=== PATIENT | female | born 1985 | race Caucasian/White ===

== ENCOUNTER 2024-05-04 08:58 | Emergency (ER) | payer OTHER, SELFPAY ==
[2024-05-04 09:19] VITALS: BP 117/78; PULSE 81; RESP 20; O2SAT 99; BMI 26.6
[2024-05-04 09:20] VITALS: BP 117/78; PULSE 83; O2SAT 94
[2024-05-04 09:30] VITALS: BP 108/72; PULSE 82; O2SAT 99
--- NOTE | 2024-05-04 09:32 | DI.US.S_ITS ---
PROCEDURE: US OB <= 14 WEEKS FETUS INDICATIONS: bleeding OUTSIDE/PRIOR DATING DATA: Last menstrual period (LMP): March 03, 2024. LMP-based estimated date of delivery (TASHI): December 08, 2024. First dating scan (date and location): May 04, 2024. Estimated date of delivery (TASHI) from first dating scan: December 28, 2024. The calculations are made using the ultrasound TASHI of December 28, 2024. TECHNIQUE: Real-time scanning was performed of the fetus and maternal pelvic organs, with image documentation. Endovaginal scanning was also performed to better visualize the fetus and maternal ovaries. COMPARISON: None. FINDINGS: Embryo: Anechoic focus in the endometrial cavity may represent early gestational sac. Mean diameter of the possible gestational sac 1.2 centimeters corresponding to estimated age of 6 weeks 0 days. No pole, yolk sac or cardiac activity identified. Maternal organs: Ovaries are within normal limits. IMPRESSION: Possible intrauterine gestational sac without yolk sac or pole. Findings could represent early , nonviable or occult ectopic . Recommend correlation with serial beta HCG and short-term follow-up obstetrical ultrasound in 1-2 weeks. Dictated by: Lynda Novoa MD, PhD on 05/04/2024 at 11:06 Approved by: Lynda Novoa MD, PhD on 05/04/2024 at 11:09
--- NOTE | 2024-05-04 09:54 | PC.NURSE ---
5 miscarriages before 5 weeks gestation
[2024-05-04 09:57] LABS: Add Manual Diff / Slide Review NO; Basophils Absolute Auto 0 /uL (0-100); Basophils Percent Auto 0.5 % (0-2); Eosinophils Absolute Auto 0 /uL (0-450); Eosinophils Percent Auto 0.2 % (2-4); Hematocrit 43.3 % (36-46); Hemoglobin 14.6 g/dL (12.0-16.0); Lymphocytes Absolute Auto 1100 /uL (1100-4500); Lymphocytes Percent Auto 13.9 % (25-40); Mean Corpuscular HGB Conc 33.7 % (30-36); Mean Corpuscular Hemoglobin 30.1 PG (26-34); Mean Corpuscular Volume 89.3 fL (80-100); Monocytes Absolute Auto 600 /uL (0-900); Neutrophils Absolute Auto 6100 /uL (1500-7000); Neutrophils Percent Auto 77.4 % (50-75); Platelet Count 190 X10^3/uL (150-400); Red Blood Cell Count 4.85 X10^6/uL (4.0-5.2); Red Cell Distribution Width 13.5 % (11.6-14.8); White Blood Cell Count 7.9 X10^3/uL (4.5-11.0)
[2024-05-04 10:00] VITALS: BP 115/76; PULSE 83; O2SAT 99
[2024-05-04 10:09] LABS: Alanine Aminotransferase 32 IU/L (<35); Albumin 4.4 g/dL (3.5-5.0); Albumin Globulin Ratio 1.5 (1.0-2.8); Alkaline Phosphatase 80 U/L (38-126); Aspartate Aminotransferase 29 IU/L (14-36); BUN Creatinine Ratio 16.7 (6-22); Bilirubin Total 0.5 mg/dL (0.2-1.3); Blood Urea Nitrogen 11 mg/dL (7-17); Calcium 9.6 mg/dL (8.4-10.2); Carbon Dioxide 26 mmol/L (22-32); Chloride 105 mmol/L (98-107); Estimated Glomerular Filt Rate > 60 mL/min (>60); Glucose 107 mg/dL (70-100); HEMOLYSIS < 15 (0-50); Potassium 3.5 mmol/L (3.4-5.1); Sodium 136 mmol/L (137-145); Total Protein 7.4 g/dL (6.3-8.2)
--- NOTE | 2024-05-04 10:17 | ED.PREGNANCY ---
HPI - General Chief complaint: OB/Uterine Contractions Stated complaint: 9 weeks , per patient spotting , clotting Time Seen by Provider: 05/04/24 09:32 Source: patient Mode of arrival: Family Vehicle Limitations: no limitations History of Present Illness HPI Narrative: Patient 39-year-old female (traumatic 2nd C/S->SABx5 prior to 6 wk) currently about 9 weeks presenting today with vaginal bleeding. Reports that she started having some cramping last night having increased blood and bleeding this morning. But she does say it is only when she wipes. She is having increased cramping. 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 Related Data Home Medications Medication Instructions Recorded Confirmed coenzyme Q10 200 mg/gram oral mg PO 04/26/24 04/26/24 powder (H2Q CoQ10) ferrous sulfate 325 mg (65 mg 975 mg PO DAILY 04/26/24 04/26/24 iron) tablet (Feosol) magnesium glycinate 240 mg PO .hs 04/26/24 04/26/24 mecobalamin (vitamin B12) 500 mcg mcg PO DAILY 04/26/24 04/26/24 chewable tablet vitamin-ferrous sulfate tab PO 04/26/24 04/26/24 27 mg iron-folic acid 0.8 mg tablet vitamin C 45 mg-zinc citrate 4 tab PO 04/26/24 04/26/24 mg-elderberry 50 mg chewable tablet vitamin D3 125 mcg (5,000 2 cap PO DAILY 04/26/24 04/26/24 unit)-vitamin K2 90 mcg capsule Allergies Allergy/AdvReac Type Severity Reaction Status Date / Time Milk Containing Products AdvReac Mild Abdominal Verified 04/26/24 14:09 (Dairy) Pain soy AdvReac Mild Abdominal Verified 04/26/24 14:09 Pain wheat AdvReac Mild Abdominal Verified 04/26/24 14:09 Pain Exam Initial Vital Signs Initial Vital Signs: Vital Signs Pulse Rate 81 05/04/24 09:19 Respiratory Rate 20 05/04/24 09:19 Blood Pressure 117/78 05/04/24 09:19 Pulse Oximetry 99 05/04/24 09:19 Oxygen Delivery Method Room Air 05/04/24 09:19 GENERAL: Tearful 40 and in no acute distress. HEENT: Head atraumatic,EOMI, pupils reactive, face symmetric, moist mucous membranes CARDIOVASCULAR: Regular rate and rhythm without murmurs, rubs or gallops. RESPIRATORY: Breath sounds equal bilaterally, no wheezes rales or rhonchi. ABDOMEN: Soft, nontender. Normoactive bowel sounds all 4 quadrants. No guarding or rebound. PELVIC: External genitalia is normal, vaginal bleeding but easily cleaned with 3 large Q-tips, no vaginal discharge, no odor, cervical os is open, no tissue EXTREMITIES: Normal range of motion, no clubbing or edema. Neurovascularly intact NEUROLOGICAL: Alert and oriented x4.Normal gait and speech. SKIN: Warm, dry, no laceration, no petechiae, no rashes or lesions. Course Orders Ordered: ED Orders 05/04/24 09:32 US OB <= 14 weeks fetus Stat 05/04/24 09:45 Complete Blood Count AUTO DIFF Stat Comprehensive Metabolic Panel Stat HCG Quantitative /Beta subunit Stat Type and Screen Stat Discontinued Medications Acetaminophen (Acetaminophen 325 Mg Tablet) 975 mg PO NOW ONE Stop: 05/04/24 11:33 Last Admin: 05/04/24 11:38 Dose: 975 mg Documented By: YVAN Vital Signs Vital signs: Vital Signs - 8 hr 05/04/24 09:19 05/04/24 09:20 05/04/24 09:20 Pulse Rate 81 83 Respiratory Rate 20 Blood Pressure 117/78 117/78 Pulse Oximetry 99 94 Oxygen Delivery Method Room Air 05/04/24 09:30 05/04/24 09:30 05/04/24 10:00 Pulse Rate 82 83 Respiratory Rate Blood Pressure 108/72 Pulse Oximetry 99 99 Oxygen Delivery Method 05/04/24 10:00 05/04/24 11:41 05/04/24 11:42 Pulse Rate Respiratory Rate Blood Pressure 115/76 103/68 Pulse Oximetry 96 Oxygen Delivery Method 05/04/24 11:42 Pulse Rate Respiratory Rate Blood Pressure Pulse Oximetry 98 Oxygen Delivery Method MDM - OB/Uterine Contractions Lab Data 05/04/24 09:45 05/04/24 09:45 Labs: Lab Results 05/04/24 Range/Units 09:45 WBC 7.9 (4.5-11.0) X10^3/uL RBC 4.85 (4.0-5.2) X10^6/uL Hgb 14.6 (12.0-16.0) g/dL Hct 43.3 (36-46) % MCV 89.3 (80-100) fL MCH 30.1 (26-34) PG MCHC 33.7 (30-36) % RDW 13.5 (11.6-14.8) % Plt Count 190 (150-400) X10^3/uL Neut % (Auto) 77.4 H (50-75) % Lymph % (Auto) 13.9 L (25-40) % [place] % (Auto) 8.0 (3-14) % Eos % (Auto) 0.2 L (2-4) % Baso % (Auto) 0.5 (0-2) % Neut # (Auto) 6100 (4438-3360) /uL Lymph # (Auto) 1100 (0616-5303) /uL [place] # (Auto) 600 (0-900) /uL Eos # (Auto) 0 (0-450) /uL Baso # (Auto) 0 (0-100) /uL Sodium 136 L (137-145) mmol/L Potassium 3.5 (3.4-5.1) mmol/L Chloride 105 (98-107) mmol/L Carbon Dioxide 26 (22-32) mmol/L BUN 11 (7-17) mg/dL Creatinine 0.66 (0.52-1.04) mg/dL Estimated GFR > 60 (>60) mL/min BUN/Creatinine Ratio 16.7 (6-22) Glucose 107 H (70-100) mg/dL Calcium 9.6 (8.4-10.2) mg/dL Total Bilirubin 0.5 (0.2-1.3) mg/dL AST 29 (14-36) IU/L ALT 32 (<35) IU/L Alkaline Phosphatase 80 (38-126) U/L Total Protein 7.4 (6.3-8.2) g/dL Albumin 4.4 (3.5-5.0) g/dL Globulin 3.0 (1.7-4.1) g/dL Albumin/Globulin Ratio 1.5 (1.0-2.8) HCG, Quant 39903 mIU/mL Blood Type O Positive Antibody Screen Negative Point of Care Testing Test Results Positive Urine Dip Bedside Urine Glucose Negative Bedside Urine Bilirubin - Negative Bedside Urine Ketone - Negative Urine Specific [place] 1.020 Bedside Urine Occult Blood +++ Bedside Urine pH 6.0 Bedside Urine Protein - Negative Bedside Urine Urobilinogen - Negative Bedside Urine Nitrite - Negative Bedside Urine Leukocytes - Negative Esterase Imaging Data US - OB: Radiologist's Impression: PROCEDURE: US OB <= 14 WEEKS FETUS INDICATIONS: bleeding OUTSIDE/PRIOR DATING DATA: Last menstrual period (LMP): March 03, 2024. LMP-based estimated date of delivery (TASHI): December 08, 2024. First dating scan (date and location): May 04, 2024. Estimated date of delivery (TASHI) from first dating scan: December 28, 2024. The calculations are made using the ultrasound TASHI of December 28, 2024. TECHNIQUE: Real-time scanning was performed of the fetus and maternal pelvic organs, with image documentation. Endovaginal scanning was also performed to better visualize the fetus and maternal ovaries. COMPARISON: None. FINDINGS: Embryo: Anechoic focus in the endometrial cavity may represent early gestational sac. Mean diameter of the possible gestational sac 1.2 centimeters corresponding to estimated age of 6 weeks 0 days. No pole, yolk sac or cardiac activity identified. Maternal organs: Ovaries are within normal limits. IMPRESSION: Possible intrauterine gestational sac without yolk sac or pole. Findings could represent early , nonviable or occult ectopic . Recommend correlation with serial beta HCG and short-term follow-up obstetrical ultrasound in 1-2 weeks. 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 Pertinent findings: HCG 63879 Blood type O positive WBC 7.9 hemoglobin 14.6 hematocrit 43.3 platelets 190 Sodium 136 potassium 3 point chloride 105 carbon dioxide 26 BUN 11 creatinine 0.68 glucose 107 Imaging studies independently reviewed: Ultrasound shows 6 weeks no cardiac activity no pole Consultations: Dr. Dowd, ok to follow up on friday with Dr. Carter, no need for repeat HCG Re-evaluations: Patient not having any significant bleeding while in the emergency department shoulders having some while she Discussion: 39-year-old female multiple spontaneous miscarriages presenting today of vaginal bleeding. Certainly concern for miscarriage today. Ultrasound shows 6 weeks last menstrual period dating should be 9 weeks. No cardiac activity no pole. HCG 11,232. Discharge Plan Departure Patient Disposition: Home Clinical Impression: Spontaneous miscarriage Instructions: DI for Miscarriage Activity Restrictions/Additional Instructions: HCG 46372 At this time okay to just follow up with Dr. Carter on Friday as scheduled If you should have increased bleeding going through more than 2 pads in 1 hour increased abdominal pain dizziness lightheadedness or other symptoms please return to the emergency department Prescriptions: No Action vit-ferrous sulfat-FA 27 mg iron- 0.8 mg tablet PO vitamin D3-vitamin K2 125-90 mcg capsule 2 cap PO DAILY ferrous sulfate [Feosol] 325 mg (65 mg iron) tablet 975 mg PO DAILY mecobalamin (vitamin B12) 500 mcg tablet,chewable PO DAILY magnesium glycinate 118 mg magnesium capsule 240 mg PO .hs vit C-zinc citrate-elderberry 45-4-50 mg tablet,chewable PO H2Q CoQ10 200 mg/gram powder PO Referrals: Provider,Toni JIMENEZ [Primary Care Provider] - Pauline Carter MD [Physician] - Stand Alone Forms: Patient Portal/API/Survey
[2024-05-04 10:26] LABS: HCG Quantitative /Beta subunit 11232 mIU/mL
[2024-05-04] MEDS: ACETAMINOPHEN 325 MG TABLET 975 MG PO (11:38)
[2024-05-04 11:41] VITALS: O2SAT 96
[2024-05-04 11:42] VITALS: BP 103/68; O2SAT 98
== END 2024-05-04 11:45 | disposition home or self-care (01) ==
PROVIDERS: Emergency Provider Emergency Medicine
DX: O03.9 Complete or unspecified spontaneous abortion without complication (principal)
CPT/HCPCS: 36415; 76801; 76817; 80053; 81003; 81025; 84702; 85025; 86850; 86900; 86901; 99284